=== PATIENT | male | born 1960 | race Caucasian/White ===

== ENCOUNTER 2018-04-04 05:34 | Emergency (ER) | payer OTHER ==
[~2018-04-04] VITALS: Ht 175.3 cm; Wt 99.8 kg
[~2018-04-04 05:34] MED LIST: BLOOD PRESSURE PILL; CYMBALTA60 MG; ESKALITH300 MG; ZYPREXA20 MG
[2018-04-04 05:44] VITALS: BP 122/72
[2018-04-04] MEDS ORDERED: PEPCID20 MG PO (05:54)
[2018-04-04] MEDS ORDERED: HYDROCORTISONE30 G9 RECTAL (05:54)
[2018-04-04] MEDS ORDERED: PREDNISONE 20 M20 MG PO (05:54)
== END 2018-04-04 06:35 | disposition home or self-care (01) ==
LOC: ER 05:34
DX: L50.9 Urticaria, unspecified (principal); K64.4 Residual hemorrhoidal skin tags; F31.9 Bipolar disorder, unspecified; I10 Essential (primary) hypertension; Z88.8 Allergy status to other drugs, medicaments and biological substances

== ENCOUNTER 2019-12-15 16:47 | Emergency (ER) | payer OTHER ==
[~2019-12-15] VITALS: Ht 175.3 cm; Wt 90.7 kg
[~2019-12-15 16:47] MED LIST changes: +HYDROCORTISONE30 G9 RECTAL; +PEPCID20 MG PO; +PREDNISONE 20 M20 MG PO
[2019-12-15 16:52] VITALS: BP 181/129
== END 2019-12-15 19:03 | disposition left against medical advice (07) ==
LOC: ER 16:47
DX: M54.9 Dorsalgia, unspecified (principal); R53.83 Other fatigue; R06.02 Shortness of breath; M54.2 Cervicalgia; Z53.21 Procedure and treatment not carried out due to patient leaving prior to being seen by health care provider

== ENCOUNTER 2020-08-02 14:44 | Emergency (ER) | payer OTHER ==
[~2020-08-02] VITALS: Ht 175.3 cm; Wt 77.6 kg
[2020-08-02 15:13] VITALS: BP 177/94
[2020-08-02] MEDS ORDERED: HYDROXYZINE HCL25 M2 PO (15:17)
--- NOTE | 2020-08-03 06:51 | EKG ---
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 : 1960 Requested By: Kenia Astudillo Order Number: [id number] MD: Jonathon Logan Measurements Intervals [place] Rate: 93 P: 25 ID: 144 QRS: 7 QRSD: 99 T: 70 QT: 406 QTc: 506 Interpretive Statements Sinus rhythm Probable left atrial enlargement Anteroseptal infarct, old Prolonged QT interval Compared to ECG 09/13/2004 14:09:21 Myocardial infarct finding now present Prolonged QT interval now present Sinus tachycardia no longer present Electronically Signed On 08-03-2020 6:51:37 CDT by Jonathon Logan [email or web address] <ELECTRONICALLY SIGNED> By: Jonathon Logan MD, [facility] 08/03/20 0651 [id number] Jonathon Logan MD, [facility] /EPI
== END 2020-08-02 15:40 | disposition home or self-care (01) ==
LOC: ER 14:44
DX: F41.9 Anxiety disorder, unspecified (principal); F31.9 Bipolar disorder, unspecified; I10 Essential (primary) hypertension; F12.90 Cannabis use, unspecified, uncomplicated; Z88.8 Allergy status to other drugs, medicaments and biological substances

== ENCOUNTER 2020-08-12 01:10 | Emergency (ER) | payer OTHER ==
[~2020-08-12] VITALS: Ht 167.6 cm; Wt 88.5 kg
[~2020-08-12 01:10] MED LIST changes: +HYDROXYZINE HCL25 M2 PO
[2020-08-12] MEDS ORDERED: IPRAT-ALBUT 0.5-3 ML NEB (02:47)
[2020-08-12] MEDS ORDERED: PREDNISONE50 MG PO (02:47)
[2020-08-12] MEDS ORDERED: LASIX 40 MG TAB40 MG PO (02:47)
[2020-08-12 03:00] VITALS: BP 142/88
== END 2020-08-12 03:01 | disposition home or self-care (01) ==
LOC: ER 01:10
DX: F41.9 Anxiety disorder, unspecified (principal); J44.9 Chronic obstructive pulmonary disease, unspecified; R60.0 Localized edema; I10 Essential (primary) hypertension; F31.9 Bipolar disorder, unspecified; Z88.8 Allergy status to other drugs, medicaments and biological substances

== ENCOUNTER 2020-08-20 22:15 | Emergency (ER) | payer OTHER ==
[~2020-08-20] VITALS: Ht 175.3 cm; Wt 77.1 kg
[~2020-08-20 22:15] MED LIST changes: +IPRAT-ALBUT 0.5-3 ML NEB; +LASIX 40 MG TAB40 MG PO; +PREDNISONE50 MG PO
[2020-08-20] MEDS ORDERED: ALPRAZOLAM 0.50.5 M1 PO (22:50)
[2020-08-20 22:56] VITALS: BP 137/80
== END 2020-08-20 23:10 | disposition home or self-care (01) ==
LOC: ER 22:15
DX: F41.9 Anxiety disorder, unspecified (principal); R60.0 Localized edema; J44.9 Chronic obstructive pulmonary disease, unspecified; J45.909 Unspecified asthma, uncomplicated; I10 Essential (primary) hypertension; Z88.8 Allergy status to other drugs, medicaments and biological substances

== ENCOUNTER → 2020-08-25 | Emergency (ER) | payer OTHER ==
[~2020-08-25] VITALS: Ht 175.3 cm; Wt 79.4 kg
[~2020-08-25] MED LIST changes: +ALPRAZOLAM 0.50.5 M1 PO
[2020-08-25 22:27] LABS: ABSOLUTE NEUTROPHILS 14.5 thou/uL (1.4-8.2); BASOPHILS 0.2 % (0.0-2.0); EOSINOPHILS 0.7 % (0.0-3.0); HEMATOCRIT 34.8 % (42.0-52.0); HEMOGLOBIN 11.5 gm/dL (14.0-18.0); LYMPHOCYTES 6.7 % (24.0-44.0); MCH 30.7 pg (26.0-34.0); MCHC 33.2 g/dL (28.0-37.0); MCV 92.4 fL (80.0-100.0); MONOCYTES 5.1 % (1.0-8.0); PLATELET COUNT 185 thou/uL (150-400); POLYS 87.3 % (36.0-66.0); RBC 3.76 mil/uL (4.50-6.00); RDW 15.5 % (10.5-14.5); WBC 16.6 thou/uL (4.0-11.0)
[2020-08-25 22:37] LABS: CREATININE 1.3 mg/dL (0.7-1.3)
[2020-08-25 22:47] LABS: ALBUMIN 1.9 g/dL (3.4-5.0); DIRECT BILIRUBIN 0.2 mg/dL (<0.1-0.2); TOTAL BILIRUBIN 0.6 mg/dL (0.2-1.0); TOTAL PROTEIN 4.9 g/dL (6.4-8.2); TROPONIN-I 0.1 ng/mL (<0.06)
[2020-08-25 23:36] LABS: MAGNESIUM 1.8 mg/dL (1.8-2.4)
[2020-08-26 00:24] VITALS: BP 00/00
--- NOTE | 2020-08-26 11:39 | EKG ---
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 : 1960 Requested By: Kenia Astudillo Order Number: [id number] MD: Camden Chatterjee Measurements Intervals [place] Rate: 118 P: 45 DC: 151 QRS: 9 QRSD: 92 T: 224 QT: 362 QTc: 508 Interpretive Statements Sinus tachycardia with bigeminal PVCs Paired ventricular premature complexes Probable left atrial enlargement LVH with secondary repolarization abnormality Compared to ECG 08/02/2020 14:54:10 Electronically Signed On 08-26-2020 11:39:24 CDT by Camden Chatterjee [email or web address] <ELECTRONICALLY SIGNED> By: Camden Chatterjee MD 08/26/20 1139 [id number] 08 Camden Chatterjee MD /ISAIAS
== END ==
LOC: ER 22:07
PROVIDERS: Emergency Medicine
DX: L03.115 Cellulitis of right lower limb (principal); E87.6 Hypokalemia; R77.8 Other specified abnormalities of plasma proteins; R07.89 Other chest pain; R06.00 Dyspnea, unspecified; F31.9 Bipolar disorder, unspecified; J44.9 Chronic obstructive pulmonary disease, unspecified; F41.9 Anxiety disorder, unspecified; Z79.899 Other long term (current) drug therapy; Z88.8 Allergy status to other drugs, medicaments and biological substances; Z91.14 Patient's other noncompliance with medication regimen

== ENCOUNTER 2020-10-09 02:17 | Emergency (ER) | payer OTHER ==
[~2020-10-09] VITALS: Ht 172.7 cm; Wt 68.0 kg
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
[2020-10-09] MEDS ORDERED: HYDROXYZINE HCL50 MG PO (02:39)
[2020-10-09] MEDS ORDERED: LASIX 20 MG TAB20 MG PO (03:31)
[2020-10-09 04:17] VITALS: BP 136/94
== END 2020-10-09 04:15 | disposition home or self-care (01) ==
LOC: ER 02:17
DX: R60.0 Localized edema (principal); F31.9 Bipolar disorder, unspecified; J45.909 Unspecified asthma, uncomplicated; J44.9 Chronic obstructive pulmonary disease, unspecified; F41.9 Anxiety disorder, unspecified; I11.0 Hypertensive heart disease with heart failure; I50.9 Heart failure, unspecified; Z79.899 Other long term (current) drug therapy

== ENCOUNTER 2021-05-06 01:43 | Inpatient (IN) | payer OTHER ==
[~2021-05-06] VITALS: Ht 167.6 cm; Wt 83.9 kg
[~2021-05-06 01:43] MED LIST changes: +HYDROXYZINE HCL50 MG PO; +LASIX 20 MG TAB20 MG PO
[2021-05-06 01:45] VITALS: BP 144/99
[2021-05-06 02:30] LABS: EOSINOPHILS 1.1 % (0.0-3.0); HEMATOCRIT 32.7 % (42.0-52.0); HEMOGLOBIN 10.4 gm/dL (14.0-18.0); LYMPHOCYTES 11.1 % (24.0-44.0); MCH 29.4 pg (26.0-34.0); MCV 91.8 fL (80.0-100.0); PLATELET COUNT 227 thou/uL (150-400); POLYS 80.8 % (36.0-66.0); RBC 3.56 mil/uL (4.50-6.00); RDW 16.7 % (10.5-14.5); WBC 12.4 thou/uL (4.0-11.0)
[2021-05-06 02:34] LABS: URINE BILIRUBIN NEGATIVE (Negative); URINE BLOOD NEGATIVE (Negative); URINE CLARITY CLEAR; URINE COLOR YELLOW; URINE GLUCOSE-RANDOM* NEGATIVE (Negative); URINE KETONES NEGATIVE (Negative); URINE LEUKOCYTES-REFLEX NEGATIVE (Negative); URINE NITRITE-REFLEX NEGATIVE (Negative); URINE PROTEIN (DIPSTICK) TRACE (Negative); URINE SPECIFIC GRAVITY >= 1.030 (1.005-1.035); URINE UROBILINOGEN 0.2 E.U./dl (0.2-1.0)
[2021-05-06 02:41] LABS: ALBUMIN 2.4 g/dL (3.4-5.0); CALCIUM 7.8 mg/dL (8.5-10.1); POTASSIUM 4.1 mmol/L (3.5-5.1); TOTAL BILIRUBIN 0.7 mg/dL (0.2-1.0); TOTAL PROTEIN 6.4 g/dL (6.4-8.2)
--- NOTE | 2021-05-06 07:10 | EKG ---
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 : 1960 Requested By: Rashi Amaral Order Number: [id number] MD: Jonathon Logan Measurements Intervals [place] Rate: 86 P: 49 ND: 155 QRS: -4 QRSD: 92 T: 45 QT: 404 QTc: 484 Interpretive Statements Sinus rhythm Borderline T wave abnormalities Borderline prolonged QT interval Compared to ECG 08/25/2020 22:09:33 T-wave abnormality now present Sinus tachycardia no longer present Ventricular premature complex(es) no longer present Left ventricular hypertrophy no longer present Early repolarization no longer present Electronically Signed On 05-06-2021 7:09:54 [employer] by Jonathon Logan [email or web address] <ELECTRONICALLY SIGNED> By: Jonathon Logan MD, FAC 05/06/21 [phone] Jonathon Logan MD, [facility] /EPI
[2021-05-06 11:21] VITALS: BP 154/90
[2021-05-06 16:06] LABS: HAV IgM AB (ANTI-HAV IgM) Negative (Negative); HEPATITIS B SURFACE AG Negative (Negative)
[2021-05-10 13:02] LABS: HEPATITIS C VIRUS AB <0.1
== END 2021-05-06 11:23 | disposition left against medical advice (07) | DRG 291 ==
LOC: ER 01:43 → EROBS 03:15
PROVIDERS: Emergency Medicine; ADMIT Hospitalist; ATTEND Hospitalist
DX: I11.0 Hypertensive heart disease with heart failure (principal); I50.33 Acute on chronic diastolic (congestive) heart failure; F31.9 Bipolar disorder, unspecified; J45.909 Unspecified asthma, uncomplicated; J44.9 Chronic obstructive pulmonary disease, unspecified; F41.9 Anxiety disorder, unspecified; R74.01 Elevation of levels of liver transaminase levels; Z53.29 Procedure and treatment not carried out because of patient's decision for other reasons; Z60.2 Problems related to living alone; Z20.822 Contact with and (suspected) exposure to COVID-19; Z87.891 Personal history of nicotine dependence